=== PATIENT | female | born 1985 | race Native Hawaiian/Other Pacific Islander ===

== ENCOUNTER 2020-08-08 16:34 | Outpatient (CLI) | payer OTHER | END 2020-08-08 20:08 | disposition home or self-care (01) | LOC: RAD 16:34 | PROVIDERS: ATTEND Nurse Practitioner Family | DX: M54.2 Cervicalgia (principal); M25.522 Pain in left elbow; M25.562 Pain in left knee ==

== ENCOUNTER 2022-06-22 04:49 | Emergency (ER) | payer OTHER ==
[~2022-06-22] VITALS: Ht 172.7 cm; Wt 59.9 kg
[2022-06-22 05:09] VITALS: TEMP 98.1
[2022-06-22 07:30] VITALS: BP 132/80
== END 2022-06-22 07:37 | disposition home or self-care (01) ==
LOC: ED 04:49
DX: S90.02XA Contusion of left ankle, initial encounter (principal); Y04.0XXA Assault by unarmed brawl or fight, initial encounter; F19.10 Other psychoactive substance abuse, uncomplicated; F17.210 Nicotine dependence, cigarettes, uncomplicated; F12.90 Cannabis use, unspecified, uncomplicated; F15.90 Other stimulant use, unspecified, uncomplicated
CPT/HCPCS: 80307; 81025; 90472; 90715; 96372; 99283; J1885